=== PATIENT | male | born 1985 | race Two or more races ===

== ENCOUNTER 2019-04-01 01:52 | Emergency (ER) | payer MEDICAID ==
[~2019-04-01] VITALS: Ht 182.9 cm; Wt 81.6 kg
--- NOTE | 2019-04-01 02:05 | NUR ---
PT BIB EMS FOR ANXIETY. PT ADMITS TO METH USE. PATIENT STATES IT IS NOT HIS FIRST TIME USING METH. PT IS JITTERY AND ANXIOUS. PLACED IN BED 13. NO SOB. BREATHING EVENLY AND UNLABORED. CONNECTED TO MONITOR.
[2019-04-01] MEDS ORDERED: LORAZEPAM INJ 2 MG/ML VIAL ONE (02:12)
[2019-04-01] MEDS: LORAZEPAM INJ 2 MG/ML VIAL IM ONE (02:19)
[2019-04-01] MEDS ORDERED: diphenhydrAMINE HCL 50 MG/ML VIAL ONE (02:43)
[2019-04-01] MEDS ORDERED: HALOPERIDOL LACTATE INJ 5 MG/ML VIAL ONE (02:44)
[2019-04-01] MEDS: diphenhydrAMINE HCL 50 MG/ML VIAL IM ONE (02:51)
[2019-04-01] MEDS: HALOPERIDOL LACTATE INJ 5 MG/ML VIAL IM ONE (02:51)
--- NOTE | 2019-04-01 02:51 | NUR ---
despite given ativan pt still keeps mving uncontrolable by flaling arm and legs. md made aware. order received to give benadryl 50mg im x1 and haldol 5mg im x 1. orders carried out and noted
[2019-04-01 05:46] VITALS: BP 122/71
--- NOTE | 2019-04-01 05:46 | NUR ---
Patient discharged to home in stable condition. Written and verbal after care instructions given. Patient verbalizes understanding of instruction.
== END 2019-04-01 05:58 | disposition home or self-care (01) ==
LOC: ER 01:52
DX: F19.90 Other psychoactive substance use, unspecified, uncomplicated (principal); F41.9 Anxiety disorder, unspecified; F15.10 Other stimulant abuse, uncomplicated
CPT/HCPCS: 96372 ×3; 99283; J1200; J1630; J2060